=== PATIENT | male | born 1985 | race Caucasian/White ===

== ENCOUNTER 2017-03-07 11:33 | Emergency (ER) | payer SELFPAY ==
[2017-03-07 11:49] VITALS: BP 130/81
--- NOTE | 2017-03-30 09:42 | ED ---
Laceration/Wound HPI - HPI Summary HPI Summary: Pt with lac to left index finger from serrated knife. There is a 1cm laceration to the distal tip of the left index finger with minimal bleeding. Nail is avulsed. Knife was clean. Denies numbness, tingling, temperature or color changes to the area. Denies other symptoms at this time. Minimal bleeding occurred. Incident occurred 1 hour prior to arrival. - History of Current Complaint Stated Complaint: LT FINGER LACERATION Time Seen by Provider: 03/07/17 13:27 Hx Obtained From: Patient Mechanism of Injury: Sharp/Blunt Trauma Onset/Duration: Sudden Onset Aggravating: Movement Alleviating: Compression Timing: Constant Onset Severity: Mild Current Severity: Mild Pain Intensity: 0 Pain Scale Used: 0-10 Numeric Associated Signs & Symptoms: Negative Related Hx: Dominant Hand (Right) - Allergy/Home Medications Allergies/Adverse Reactions: Allergies Allergy/AdvReac Type Severity Reaction Status Date / Time No Known Allergies Allergy Verified 03/17/17 11:01 PMH/Surg Hx/FS Hx/Imm Hx Previously Healthy: Yes - Immunization History Hx Pertussis Vaccination: No Immunizations Up to Date: Unable to Obtain/Confirm Infectious Disease History: Denies: Traveled Outside the [place] in Last 30 Days - Social History Occupation: Employed Full-time Lives: With Family Alcohol Use: None Hx Substance Use: No Substance Use Type: Reports: None Hx Tobacco Use: No Smoking Status (MU): Never Smoked Tobacco Do You Chew or Dip Tobacco: No Have You Chewed or Dipped Tobacco in the LAST YEAR: No Review of Systems Constitutional: Negative Eyes: Negative Cardiovascular: Negative Respiratory: Negative Positive: no symptoms reported, see HPI Musculoskeletal: Negative Positive: Other - avulsed skin of distal tip Neurological: Negative Psychological: Normal All Other Systems Reviewed And Are Negative: Yes Physical Exam Triage Information Reviewed: Yes Vital Signs On Initial Exam: Initial Vitals Temp Pulse Resp BP Pulse Ox 97.1 F 64 18 130/81 99 03/07/17 11:47 03/07/17 11:47 03/07/17 11:47 03/07/17 11:47 03/07/17 11:47 Vital Signs Reviewed: Yes Appearance: Positive: Well-Appearing, Well-Nourished Skin: Positive: Warm, Skin Color Reflects Adequate Perfusion, Other - left index avulsion of the skin and nail Head/Face: Positive: Normal Head/Face Inspection Eyes: Positive: Normal, EOMI, Conjunctiva Clear Neck: Positive: Supple, No Lymphadenopathy Respiratory/Lung Sounds: Positive: Clear to Auscultation, Breath Sounds Present Cardiovascular: Positive: Normal, RRR, Pulses are Symmetrical in both Upper and Lower Extremities Musculoskeletal: Positive: Normal, Strength/ROM Intact Neurological: Positive: Sensory/Motor Intact, Alert, Oriented to Person Place, Time, Speech Normal Psychiatric: Positive: Normal Diagnostics - Vital Signs Vital Signs Temp Pulse Resp BP Pulse Ox 03/07/17 11:47 97.1 F 64 18 130/81 99 - Laboratory Lab Statement: Any lab studies that have been ordered have been reviewed, and results considered in the medical decision making process. Laceration Repair Course/Dx - Course Course Of Treatment: avulsion of skin of left index finger. Timeout obtained. Cleansed wound. Irrigated with 20CC's normal saline. Lidocaine without epi as local anesthetic - 1ml. 4-0 non-absorbable prolene. 3 sutures placed using simple interrupted technique. Patient tolerated well. Cleaned and dressed wound with telfa dressing. NV exam WNL. Sutures out in 5 days. Return precautions given. Patient OK with discharge. - Differential Dx Differental Diagnoses: Avulsion, Laceration, Puncture Wound - Clinical Impression Provider Diagnoses: Laceration of finger Discharge - Discharge Plan Condition: Stable Disposition: HOME Patient Education Materials: Care For Your Stitches (ED), Nail Avulsion (ED) Referrals: Josef Mcclain MD [Primary Care Provider] - Additional Instructions: Suture removal in 5-7 days Continue with dressing today Keep on for 24 hours For worsening symptoms, large amount of swelling or black area to the skin of the finger - return to the ED or go to urgent care
== END 2017-03-07 15:26 | disposition home or self-care (01) ==
LOC: ED 11:33
DX: S61.211A Laceration without foreign body of left index finger without damage to nail, initial encounter (principal); W26.0XXA Contact with knife, initial encounter; Y93.9 Activity, unspecified; Y92.9 Unspecified place or not applicable; Y99.9 Unspecified external cause status
CPT/HCPCS: 99281

== ENCOUNTER 2017-03-17 10:03 | Emergency (ER) | payer SELFPAY ==
[2017-03-17 11:02] VITALS: BP 138/70
--- NOTE | 2017-03-17 11:15 | UC ---
Skin Complaint HPI - HPI Summary HPI Summary: 31 y/o male presents for suture removal on his RT index. Pt reports he cut his Rt index at work on 03/07. Sutures were place CMED. Pt denies fever, or signs of infection and states woudn is healing well. Pt denies fever, SOB, N/V/D. Pt has no other complains. - History of Current Complaint Chief Complaint: UCLaceration Time Seen by Provider: 03/17/17 11:06 Stated Complaint: SUTURE REMOVAL Hx Obtained From: Patient Onset/Duration: Sudden Onset, Lasting Days, Still Present Skin Exposure Onset/Duration: Days Ago Timing: Constant Onset Severity: Moderate Current Severity: Mild Pain Intensity: 0 Pain Scale Used: 0-10 Numeric Location: Hand (Right) - RT index laceration sutured Aggravating: Nothing Alleviating: Nothing Associated Signs & Symptoms: Positive: Negative Related History: Trauma - Allergy/Home Medications Allergies/Adverse Reactions: Allergies Allergy/AdvReac Type Severity Reaction Status Date / Time No Known Allergies Allergy Verified 03/17/17 11:01 Review of Systems Constitutional: Negative Skin: Other - RT index with laceration and 2 stiches Eyes: Negative ENT: Negative Respiratory: Negative Cardiovascular: Negative Gastrointestinal: Negative Genitourinary: Negative Motor: Negative Neurovascular: Negative Musculoskeletal: Negative Neurological: Negative Psychological: Negative All Other Systems Reviewed And Are Negative: Yes PMH/Surg Hx/FS Hx/Imm Hx Previously Healthy: Yes - Family History Known Family History: Positive: None - Social History Occupation: Employed Full-time Lives: With Family Alcohol Use: None Substance Use Type: None Smoking Status (MU): Never Smoked Tobacco Physical Exam Triage Information Reviewed: Yes Appearance: Well-Appearing, No Pain Distress, Well-Nourished, Thin Vital Signs: Initial Vital Signs Temp 97.6 F 03/17/17 10:59 Pulse 58 03/17/17 10:59 Resp 16 03/17/17 10:59 BP 138/70 03/17/17 10:59 Pulse Ox 100 03/17/17 10:59 Vital Signs Reviewed: Yes ENT Exam: Normal ENT: Positive: Normal ENT inspection, Hearing grossly normal, Pharynx normal, TMs normal Neck exam: Normal Respiratory Exam: Normal Cardiovascular Exam: Normal Abdominal Exam: Normal Skin: Positive: significant lesion(s) - RT index with laceration sutured w/ 2 stiches, no erythema, non tender to palpation. wound healing well . Course/Dx - Course Course Of Treatment: PE abnormal findings: RT index with laceration sutured w/ 2 stiches, no erythema, non tender to palpation. wound healing well. 2 sutures removed w/o any difficulty w/ scissors. Some bacitracin ointment applied and wound covered with sterile dressing. Pt tolerated well procedure. Pt advised to keep wound clean and dry. Pt understood and agreed. - Differential Diagnoses - Skin Complaint Differential Diagnoses: Cellulitis, Contact Dermatitis, Other - suture removal - Diagnoses Provider Diagnoses: 1-RT index suture removal. Discharge - Discharge Plan Condition: Stable Disposition: HOME Patient Education Materials: Stitches Removal (ED) Referrals: Josef Mcclain MD [Primary Care Provider] - If Needed Additional Instructions: Please wound dry and clean. If any fever, redness or swelling develops around site of wound please return to the urgent care or f/u with PCP for further evaluation and treatment.
== END 2017-03-17 11:20 | disposition home or self-care (01) ==
LOC: UCEAST 10:03
DX: Z48.02 Encounter for removal of sutures (principal)
CPT/HCPCS: 99211; G0463